=== PATIENT | male | born 1935 | race Hispanic/Latino ===

== ENCOUNTER 2018-08-08 16:30 | Observation (INO) | payer MEDICARE ==
[2018-08-08 16:35] VITALS: BMI 25.5
[2018-08-08] MEDS ORDERED: Morphine 4 mg/ml ISec IVP STA (16:52)
--- NOTE | 2018-08-08 16:55 | ED PDOC ---
Arrival/HPI - General Chief Complaint: Chest Pain Time Seen by Provider: 08/08/18 16:38 Historian: Patient - History of Present Illness Narrative History of Present Illness (Text): 08/08/18 16:47 82 year old male, with past medical history of pacemaker and back surgery, presents to the ED accompanied by for evaluation of chest pain since 1 hour prior to arrival. Patient states coming home from [employer] prior to to onset of symptoms and while at rest he experienced a sudden onset of chest heaviness associated with mild epigastric and right upper quadrant abdominal pain. informs giving patient 325mg of Aspirin prior to arrival. Patient denies any strenuous activity or spicy diet intake prior to onset of symptoms. Patient denies any other associated somatic complaints. Patient denies any fevers, chills, headache, dizziness, shortness of breath, dyspnea on exertion, cough, nausea, vomiting, diarrhea, back pain, neck pain, or any other complaints. PMD: Dr. Gardner Furnace Caretaker: Dr. Cao Time/Duration: 1 hour Symptom Onset: Gradual Symptom Course: Unchanged Activities at Onset: Light Context: Home Past Medical History - Provider Review Nursing Documentation Reviewed: Yes - Infectious Disease Hx of Infectious Diseases: None - Cardiac Hx Cardiac Disorders: Yes Hx Pacemaker: Yes Other/Comment: Left Side Pacemaker - Pulmonary Hx Respiratory Disorders: No - Neurological Hx Neurological Disorder: No - HEENT Hx HEENT Disorder: Yes (wears glasses) - Renal Hx Renal Disorder: No - Endocrine/Metabolic Hx Endocrine Disorders: No - Hematological/Oncological Hx Blood Disorders: No - Integumentary Hx Dermatological Disorder: No - Musculoskeletal/Rheumatological Hx Musculoskeletal Disorders: No - Gastrointestinal Hx Gastrointestinal Disorders: Yes Hx Gastroesophageal Reflux: Yes - Genitourinary/Gynecological Hx Genitourinary Disorders: No - Psychiatric Hx Psychophysiologic Disorder: No Hx Substance Use: No Family/Social History - Physician Review Nursing Documentation Reviewed: Yes Family/Social History: Unknown Family HX Smoking Status: Never Smoked Hx Alcohol Use: No Hx Substance Use: No Allergies/Home Meds Allergies/Adverse Reactions: Allergies Penicillins Allergy (Verified 08/08/18 16:35) ANAPHYLAXIS Home Medications: Home Meds Medication Instructions Recorded Confirmed RX: Aspirin [Ecotrin] 81 mg PO DAILY 08/08/18 08/08/18 RX: Finasteride [Proscar] 5 mg PO DAILY 08/08/18 08/08/18 RX: Pantoprazole [Protonix EC Tab] 40 mg PO DAILY 08/08/18 08/08/18 Valsartan [Diovan] 80 mg PO DAILY 08/08/18 08/08/18 Review of Systems - Physician Review All systems were reviewed & negative as marked: Yes - Review of Systems Constitutional: absent: Fevers Respiratory: absent: SOB, Cough Cardiovascular: Chest Pain Gastrointestinal: Abdominal Pain. absent: Diarrhea, Nausea, Vomiting Genitourinary Male: absent: Dysuria, Urinary Output Changes Musculoskeletal: absent: Back Pain, Neck Pain Skin: absent: Rash Neurological: absent: Headache, Dizziness Endocrine: absent: Diaphoresis Psychiatric: absent: Anxiety Physical Exam Vital Signs Reviewed: Yes Vital Signs Pulse Resp BP Pulse Ox 08/08/18 16:38 74 16 182/87 H 99 Temperature: Afebrile Blood Pressure: Hypertensive Pulse: Regular Respiratory Rate: Normal Appearance: Positive for: Well-Appearing, Non-Toxic, Comfortable Pain Distress: None Mental Status: Positive for: Alert and Oriented X 3 - Systems Exam Head: Present: Atraumatic, Normocephalic Pupils: Present: PERRL Extroacular Muscles: Present: EOMI Conjunctiva: Present: Normal Mouth: Present: Moist Mucous Membranes Neck: Present: Normal Range of Motion Respiratory/Chest: Present: Clear to Auscultation, Good Air Exchange. No: Respiratory Distress, Accessory Muscle Use Cardiovascular: Present: Regular Rate and Rhythm, Normal S1, S2. No: Murmurs Abdomen: Present: Tenderness (Mild right upper quadrant). No: Distention, Peritoneal Signs Back: Present: Normal Inspection Upper Extremity: Present: Normal Inspection. No: Cyanosis, Edema Lower Extremity: Present: Normal Inspection. No: Edema Neurological: Present: GCS=15, CN II-XII Intact, Speech Normal Skin: Present: Warm, Dry, Normal Color. No: Rashes Psychiatric: Present: Alert, Oriented x 3, Normal Insight, Normal Concentration Medical Decision Making ED Course and Treatment: 08/08/18 16:47 Impression: 82 year old male presents to the ED for evaluation of chest pain since 1 hour prior to arrival. Likely medium risk chest pain per HEART score given age, RF, V paced EKG, and story of crushing chest pain. Given chest pain radiating to back will always likely require CT chest Angio to rule out dissection. No leg swelling or RODRIGUEZ. ?abdominal pain / RUQ epigastric pain as well. HEART score: Trop: pending EK (V paced) AGE; 1 RF: 0 Story: 1 Plan: -- CTA Dissection Study -- EKG -- Labs -- Chest X-ray -- Morphine -- IV Fluids -- US of Gallbladder -- Reassess and disposition Prior Visits: Notes and results from previous visits were reviewed. Progress Notes: 08/08/18 16:45 EKG reviewed, shows Ventricularly paced at 72 bpm. 08/08/18 17:37 xray, labs unremarkable appreciate consult w/ Dr. Madera: on for elkinds: will see pt tomorrow in AM. appreciate consult w/ Dr. Serrano: to be admitted under his service. - EKG Interpretation Interpreted by ED Physician: Yes Type: 12 lead EKG - Scribe Statement The provider has reviewed the documentation as recorded by the Scribe Jazmin Gibbs. All medical record entries made by the Scribe were at my direction and personally dictated by me. I have reviewed the chart and agree that the record accurately reflects my personal performance of the history, physical exam, medical decision making, and the department course for this patient. I have also personally directed, reviewed, and agree with the discharge instructions and disposition. Disposition/Present on Arrival - Present on Arrival Any Indicators Present on Arrival: No History of DVT/PE: No History of Uncontrolled Diabetes: No Urinary Catheter: No History of Decub. Ulcer: No History Surgical Site Infection Following: None - Disposition Have Diagnosis and Disposition been Completed?: Yes Diagnosis: Chest pain Disposition: HOSPITALIZED Disposition Time: 17:38 Patient Problems: Current Active Problems Problem Status Onset Chest pain Acute Condition: STABLE
[2018-08-08] MEDS ORDERED: Sodium Chloride 0.9% 1,000 ML IV SCH (17:00)
[2018-08-08 17:03] LABS: BASO # 0.02 K/mm3 (0.0-2.0); BASO % 0.3 % (0.0-3.0); EOS # 0.2 (0.0-0.7); EOS % 3.2 % (1.5-5.0); LYMPH # 1.4 (1.2-3.4); LYMPH % 20.5 % (22.0-35.0); MEAN CELL VOLUME 96.1 fl (80.0-105.0); MEAN CORPUSCULAR HEMOGLOBIN 31.9 pg (25.0-35.0); MEAN CORPUSCULAR HGB CONC 33.2 g/dl (31.0-37.0); MEAN PLATELET VOLUME 9.4 fl (7.0-11.0); MONO # 0.5 (0.1-0.6); MONO % 7.6 % (1.0-6.0); RBC 4.07 10^6/uL (3.5-6.1); WHITE BLOOD COUNT 6.6 10^3/uL (4.5-11.0)
[2018-08-08 17:11] LABS: ALB/GLOB RATIO 1.3 (1.1-1.8); ALBUMIN 4.3 g/dL (3.0-4.8); CALCIUM 10.2 mg/dL (8.4-10.5)
[2018-08-08 17:23] LABS: TROPONIN I 0.02 ng/mL
--- NOTE | 2018-08-08 18:35 | CT ---
PROCEDURE: CT Angiography Chest, Abdomen and Pelvis with and without intravenous contrast HISTORY: chest pain radiating to back COMPARISON: None. TECHNIQUE: Contiguous axial images of the chest, abdomen and pelvis were obtained in the phase of aortic enhancement. A noncontrast enhanced CT of the chest was also obtained to evaluate for possible intramural thrombus. Coronal and sagittal reformats were generated. IV dose administered: 118 cc Omnipaque 350 Radiation dose: Total exam DLP = 1349.62 mGy-cm. This CT exam was performed using one or more of the following dose reduction techniques: Automated exposure control, adjustment of the mA and/or kV according to patient size, and/or use of iterative reconstruction technique. FINDINGS: CT ANGIOGRAPHY OF THE CHEST WITH & WITHOUT CONTRAST: AORTA (CHEST AND ABDOMEN): No evidence of aortic dissection. Mild aneurysmal dilatation of the ascending thoracic aorta to a diameter of 4 cm. No evidence of abdominal aortic aneurysm. The celiac axis, superior mesenteric artery, inferior mesenteric artery and the renal arteries are widely patent. The pelvic arteries are unremarkable. LUNGS: Clear. No nodule, mass or consolidation. MEDIASTINUM: Unremarkable. Normal caliber aorta and pulmonary arterial trunk. No aortic dissection. Normal size heart. LYMPH NODES: Unremarkable. PLEURA: Unremarkable. No pneumothorax. No pleural fluid. BONES: Unremarkable. OTHER FINDINGS: None. CT ANGIOGRAPHY OF THE ABDOMEN AND PELVIS WITH CONTRAST: LIVER: Numerous nonspecific rounded low-attenuation masses in both lobes of the liver. Largest such mass in posterior right hepatic lobe, 2.8 cm. Consider correlation with abdominal ultrasound to determine whether these are solid masses or cystic. Smooth contour. No biliary dilatation. GALLBLADDER AND BILE DUCTS: Unremarkable. PANCREAS: Unremarkable. No gross lesion or ductal dilatation. SPLEEN: Unremarkable. ADRENALS: Unremarkable. No mass. KIDNEYS AND URETERS: Bilateral rounded low-attenuation renal masses, likely cysts. Largest in right kidney in upper pole, 3.3 cm, measuring 9 Hounsfield units. Largest in upper pole left kidney, pedunculated 6.0 cm, measuring 5 Hounsfield units. No calculus. No hydronephrosis peer VASCULATURE: Unremarkable. No aortic aneurysm. There is atherosclerotic calcification of the abdominal aorta. STOMACH AND BOWEL: Unremarkable. No obstruction. No gross mural thickening. APPENDIX: Not identified. No secondary findings. PERITONEUM: Unremarkable. No free fluid. No free air. LYMPH NODES: Unremarkable. No enlarged lymph nodes. BLADDER: Unremarkable. REPRODUCTIVE: Enlarged prostate BONES: No acute fracture. OTHER FINDINGS: None. IMPRESSION: No evidence of aortic dissection. Mild aneurysmal dilatation of the ascending thoracic aorta. No abdominal aortic aneurysm. Multiple low-attenuation hepatic masses. Possible cysts. Recommend correlation with hepatic ultrasound examination on a nonemergent basis. Minor findings as above.
--- NOTE | 2018-08-08 18:56 | US ---
Date of service: 08/08/2018 HISTORY: epigastric pain COMPARISON: None. TECHNIQUE: Sonographic evaluation of the right upper quadrant of the abdomen. FINDINGS: LIVER: Measures 12.6 cm in length. Diffusely increased echogenicity of the liver parenchyma. Consistent with fatty infiltration. Smooth contour. Multiple simple cysts noted throughout the liver. Largest cyst approximately 3.7 x 3.0 x 2.8 cm. No solid mass. No biliary dilatation. Smooth contour. GALLBLADDER: Unremarkable. No gallstones. COMMON BILE DUCT: Measures 3 mm. No stones. No dilatation. PANCREAS: Unremarkable as visualized. No mass. No ductal dilatation. RIGHT KIDNEY: Measures 9.1 cm in length. Normal cortical thickness and echogenicity. No calculus or hydronephrosis. Two simple cysts, mid aspect right kidney. These measure 3.2 x 3.3 x 3.3 cm and 1.9 x 2.0 x 2.2 cm. AORTA: No aneurysmal dilatation. IVC: Unremarkable. OTHER FINDINGS: None . IMPRESSION: Fatty infiltration of the liver. Multiple hepatic cysts. Two right renal cysts. No evidence of cholelithiasis or cholecystitis.
[2018-08-08] MEDS: Pantoprazole 40 mg EC Tab PO SCH (19:08)
--- NOTE | 2018-08-08 23:12 | CARD ---
APPROVED REPORT Date of service: 08/08/2018 EKG Measurement Heart [id number] NM [id number] <Conclusion> Electronic ventricular pacemake Atrial paced to intrinsic atrial sensed with marked first degree AVB. 1:1 capture
[2018-08-09 08:18] VITALS: RESP 20; TEMP 97.9; O2SAT 95
[2018-08-09] MEDS: Pantoprazole 40 mg EC Tab PO SCH (09:44)
[2018-08-09 09:47] VITALS: BP 106/69
--- NOTE | 2018-08-09 10:11 | RAD ---
Date of service: 08/08/2018 HISTORY: chest pain COMPARISON: No prior. FINDINGS: LUNGS: No active pulmonary disease. PLEURA: No significant pleural effusion identified, no pneumothorax apparent. CARDIOVASCULAR: No aortic atherosclerotic calcification present. Mild cardiomegaly no pulmonary vascular congestion. Dual lead pacemaker OSSEOUS STRUCTURES: No significant abnormalities. VISUALIZED UPPER ABDOMEN: Normal. OTHER FINDINGS: None. IMPRESSION: No active disease.
[2018-08-09 10:54] VITALS: PULSE 85
--- NOTE | 2018-08-09 15:12 | CON ---
DATE: 08/09/2018 REQUESTING PHYSICIAN: Dr. Serrano. REASON FOR CONSULTATION: Chest pain. 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 He describes this as a heaviness with some associated mild epigastric discomfort. This occurred after returning home from shopping. His pain lasted for approximately an hour. It was relatively nonradiating and cannot identify any particular precipitating or relieving factors. PAST MEDICAL HISTORY: His past history is notable for hypertension, gastroesophageal reflux disease, and BPH. He also has undergone pacemaker implant in the past with a generator change several years ago. He has undergone prior back surgery as well. MEDICATIONS: Medications at home include aspirin, Proscar, Protonix. ALLERGIES: HE HAS HAD A REACTION TO PENICILLIN WITH ANAPHYLAXIS IN THE PAST. SOCIAL HISTORY: He is , lives with his . He is retired. He does not smoke or drink. FAMILY HISTORY: Unremarkable for premature heart disease. Both parents were from age-related illness. REVIEW OF SYSTEMS: Ten-point review of systems was unremarkable. PHYSICAL EXAMINATION: GENERAL: He is a healthy-appearing elderly man. VITAL SIGNS: His blood pressure is 130/70 with pulse of 60, in ventricular pacing, respirations 14. He is afebrile. HEENT: Head: Normocephalic, atraumatic. NECK: Supple. No JVD noted. CHEST: Clear to auscultation and percussion. HEART: PMI displaced laterally with paradoxical splitting of second sound. No pathological gallops noted. ABDOMEN: The abdomen is soft, nontender, normoactive bowel sounds. EXTREMITIES: No edema. SKIN: Warm and dry. PSYCHIATRIC: Normal mood and affect. NEUROLOGIC: Alert and oriented x3. No gross motor or sensory deficits noted. DIAGNOSTIC DATA: Three sets of cardiac enzymes are negative. BUN and creatinine of 30 and 1.4, potassium 4.2. White count 6.6, hemoglobin and hematocrit 13 and 39.1 with a platelet count of 205,000. CT angiogram of the chest revealed no evidence of pulmonary emboli or aortic dissection. Abdominal ultrasound revealed fatty liver infiltration of the liver with no evidence of cholelithiasis. IMPRESSION: 1. Chest pain. No clear evidence of cardiac ischemia, exact etiology uncertain. 2. Rest of problems as above. RECOMMENDATIONS: From cardiac standpoint, it appears stable for discharge home at this time and an outpatient stress test will be arranged. Further recommendations will be made based upon those findings. Thank you for this consultation. Dany Flor MD
--- NOTE | 2018-08-09 20:56 | HP ---
DATE OF EXAM: 08/09/2018 HISTORY OF PRESENT ILLNESS: This is an 82-year-old male who is coming to the hospital with past medical history of pacemaker secondary to bradycardia and back pain surgery complaining of chest pain. He said that chest pain lasted about an hour an half, it was epigastric. He denied any shortness of breath. No nausea. No vomiting. He had no radiation of his pain. He had no abdominal pain outside of the epigastric pain. No fevers or chills. No headaches. No nausea. No vomiting. He said the pain sometimes is in the right upper quadrant. He said it was of sudden onset, it also was accompanied by some chest heaviness. He had taken an aspirin prior to coming into the emergency room. REVIEW OF SYSTEMS: All the review of systems are within normal limits except as mentioned. ALLERGIES: TO PENICILLIN. PAST MEDICAL HISTORY: A pacemaker 12 years ago. PAST SURGICAL HISTORY: Back surgery. SOCIAL HISTORY: He does not smoke or use drugs. He drinks socially. FAMILY HISTORY: Father of coronary artery disease at 58, mother of CHF at age 90. PHYSICAL EXAMINATION VITAL SIGNS: Temperature is 97.9, pulse is 52, blood pressure 133/70, respirations 20, O2 saturation 95%. Height is 5 feet 7. Weight is 163 pounds. BMI is 25.5. GENERAL: The patient is lying in bed, comfortable, and in no acute distress. HEENT: Atraumatic and normocephalic. Anicteric sclerae. Moist mucosa. [place] conjunctivae. No oral lesions. NECK: No JVD, anterior and posterior adenopathy, thyromegaly, or bruits. CARDIOVASCULAR: S1 and S2 regular. No murmurs, rubs or gallops. LUNGS: Clear to auscultation bilaterally. No wheezes, rales, or rhonchi. ABDOMEN: Bowel sounds are positive. Soft, nontender and nondistended. No hepatosplenomegaly. No rebound and no guarding. EXTREMITIES: No cyanosis, clubbing, or edema. NEUROLOGIC: No facial asymmetry. Tongue is midline. No uvula deviation. Power is 5/5 upper extremities and lower extremities. Sensation intact in upper extremities and lower extremities. PSYCHIATRIC: He is awake, alert and oriented. No anxiety or depression. He has normal affect. GENITOURINARY: No CVA tenderness. VASCULAR: 2+ pulses in the carotid pulses and pedal pulses. SKIN: No erythema or nodules SPINE: Shows normal curvature. LABORATORY DATA: White count is 6.6, hemoglobin 13, platelet count is 205. Chemistry shows a sodium is 141, potassium is 4.2, creatinine is 1.4. Troponin x3 has been negative. His abdominal ultrasound done shows fatty infiltrate of the liver, there are multiple hepatic cysts, there are 2 right renal cysts. His chest x-ray shows no infiltrates. CT angio of the chest done shows no evidence of aortic dissection. There is a mild aneurysmal dilation of the ascending thoracic aorta. There is no abdominal aortic aneurysm. EKG with a heart rate of 72 that is paced. ASSESSMENT: 1. Chest pain, resolved. 2. History of pacemaker. 3. Nonalcoholic hepato-steatosis. 4. Hepatic cysts. 5. Right renal cysts. PLAN: The patient was admitted for chest pain. He is chest pain free. He was given aspirin. He was seen by Cardiology. He plans to be discharged home. His troponin x3 have been negative. He was seen and will be followed up by Cardiology as an outpatient. GI for evaluation. He does not have any aortic aneurysm by CT. Ultrasound does not show any gallbladder stones. Discharge home. Followup with primary care doctor in one to two weeks. Amos Serrano MD
== END 2018-08-09 13:30 | disposition home or self-care (01) ==
LOC: ED 16:30 → ERH 17:35 → 3RNO 21:05
PROVIDERS: ADMIT Internal Medicine Nephrology; ATTEND Internal Medicine Nephrology
DX: R07.9 Chest pain, unspecified (principal); I10 Essential (primary) hypertension; N40.0 Benign prostatic hyperplasia without lower urinary tract symptoms; N28.1 Cyst of kidney, acquired; K21.9 Gastro-esophageal reflux disease without esophagitis; K76.0 Fatty (change of) liver, not elsewhere classified; Z95.0 Presence of cardiac pacemaker; K76.89 Other specified diseases of liver
CPT/HCPCS: 36415; 71045; 71275; 74175; 76705; 80053; 83690; 83880; 84484; 85025; 93005; 99285; G0378; J7030; Q9967

== ENCOUNTER 2018-08-29 08:24 | Outpatient (CLI) | payer MEDICARE | END 2018-08-29 08:25 | disposition home or self-care (01) | LOC: RAD 08:24 ==